=== PATIENT | male | born 1990 | race Caucasian/White ===

== ENCOUNTER 2021-06-26 17:05 | Emergency (ER) | payer OTHER ==
[~2021-06-26] VITALS: Ht 182.9 cm; Wt 63.5 kg
[~2021-06-26 17:05] MED LIST: STOMACH MED
[2021-06-26] MEDS ORDERED: GABA100 (17:29)
== END 2021-06-26 19:05 | disposition home or self-care (01) ==
LOC: ER 17:05
DX: S06.0X0A Concussion without loss of consciousness, initial encounter (principal); S01.21XA Laceration without foreign body of nose, initial encounter; W22.8XXA Striking against or struck by other objects, initial encounter
CPT/HCPCS: 12013; 70486; 96372; 99283-25; A9270; J1885

== ENCOUNTER 2021-08-18 12:55 | Emergency (ER) | payer OTHER ==
[~2021-08-18] VITALS: Ht 177.8 cm; Wt 79.4 kg
[~2021-08-18 12:55] MED LIST changes: +GABA100
== END 2021-08-18 15:20 | disposition home or self-care (01) ==
LOC: ER 12:55
DX: S93.401A Sprain of unspecified ligament of right ankle, initial encounter (principal); X58.XXXA Exposure to other specified factors, initial encounter
CPT/HCPCS: 73590; 73610; 73630; J1885; J2405; J3010

== ENCOUNTER 2021-09-03 10:21 | Emergency (ER) | payer OTHER ==
[~2021-09-03] VITALS: Ht 170.2 cm; Wt 70.3 kg
[2021-09-03 12:05] LABS: BASOPHILS ABSOLUTE AUTO 0.04 K/mm3 (0.00-0.23); BASOPHILS PERCENT AUTO 0 % (0-2); EOSINOPHILS ABSOLUTE AUTO 0.08 K/mm3 (0.00-0.68); EOSINOPHILS PERCENT AUTO 1 % (0-6); Hematocrit 43.6 % (37.0-53.0); Hemoglobin 14.7 g/dL (13.5-17.5); IMMATURE GRAN ABSOLUTE AUTO 0.08 K/mm3 (0.00-0.10); IMMATURE GRAN PERCENT AUTO 1 % (0-1); LYMPHOCYTES ABSOLUTE AUTO 1.05 K/mm3 (0.84-5.20); LYMPHOCYTES PERCENT AUTO 7 % (21-46); MONOCYTES ABSOLUTE AUTO 1.14 K/mm3 (0.16-1.47); MONOCYTES PERCENT AUTO 7 % (4-13); Mean Corpuscular HGB 31.1 pg (26.0-34.0); Mean Corpuscular HGB Conc 33.7 g/dL (31.5-36.5); Mean Corpuscular Volume 92 fL (80-100); Mean Platelet Volume 10.5 fL (9.1-12.4); NEUTROPHILS ABSOLUTE AUTO 13.85 K/mm3 (1.96-9.15); NEUTROPHILS PERCENT AUTO 85 % (41-73); Platelet Count 237 K/mm3 (150-400); RDW Coefficient Variation 13.3 % (11.7-14.2); RDW Standard Deviation 45.1 fL (35.1-46.3); Red Blood Cell Count 4.73 M/mm3 (4.30-5.90); White Blood Cell Count 16.24 K/mm3 (4.00-11.30)
[2021-09-03 12:36] LABS: Alanine Aminotransfer (ALT/SGP 24 U/L (12-78); Albumin, Blood 3.8 g/dL (3.4-5.0); Alk Phos 88 U/L (50-136); Anion Gap 10 mmol/L (6-16); Aspartate Aminotrans (AST/SGOT 12 U/L (12-37); Bilirubin, Total 0.6 mg/dL (0.1-1.0); Blood Urea Nitrogen 8 mg/dL (8-24); CO2, Blood 26 mmol/L (21-32); Calcium, Blood 9.8 mg/dL (8.5-10.1); Chloride, Blood 102 mmol/L (98-108); Globulin, Blood 3.9 g/dL (2.2-4.0); Glomerular Filtration Rate >60 (60-); Glucose, Blood 108 mg/dL (70-99); Potassium, Blood 4.1 mmol/L (3.5-5.5); Sodium, Blood 138 mmol/L (136-145); Total Protein, Blood 7.7 g/dL (6.4-8.2)
== END 2021-09-03 12:58 | disposition home or self-care (01) ==
LOC: ER 10:21
PROVIDERS: Physician Assistant
DX: B08.4 Enteroviral vesicular stomatitis with exanthem (principal); F17.220 Nicotine dependence, chewing tobacco, uncomplicated
CPT/HCPCS: 80053; 85025; 86592; A9270; J0561

== ENCOUNTER 2021-09-05 13:17 | Emergency (ER) | payer OTHER ==
[~2021-09-05] VITALS: Ht 180.3 cm; Wt 70.3 kg
[2021-09-05 13:33] LABS: BASOPHILS ABSOLUTE AUTO 0.05 K/mm3 (0.00-0.23); BASOPHILS PERCENT AUTO 0 % (0-2); EOSINOPHILS ABSOLUTE AUTO 0.16 K/mm3 (0.00-0.68); EOSINOPHILS PERCENT AUTO 1 % (0-6); Hematocrit 45.9 % (37.0-53.0); Hemoglobin 15.6 g/dL (13.5-17.5); IMMATURE GRAN ABSOLUTE AUTO 0.05 K/mm3 (0.00-0.10); IMMATURE GRAN PERCENT AUTO 0 % (0-1); LYMPHOCYTES ABSOLUTE AUTO 0.73 K/mm3 (0.84-5.20); LYMPHOCYTES PERCENT AUTO 6 % (21-46); MONOCYTES ABSOLUTE AUTO 1.46 K/mm3 (0.16-1.47); MONOCYTES PERCENT AUTO 11 % (4-13); Mean Corpuscular Volume 91 fL (80-100); Mean Platelet Volume 9.9 fL (9.1-12.4); NEUTROPHILS ABSOLUTE AUTO 10.67 K/mm3 (1.96-9.15); NEUTROPHILS PERCENT AUTO 81 % (41-73); Platelet Count 298 K/mm3 (150-400); RDW Coefficient Variation 13.2 % (11.7-14.2); RDW Standard Deviation 44.2 fL (35.1-46.3); Red Blood Cell Count 5.04 M/mm3 (4.30-5.90); White Blood Cell Count 13.12 K/mm3 (4.00-11.30)
[2021-09-05 13:51] LABS: Alanine Aminotransfer (ALT/SGP 26 U/L (12-78); Albumin, Blood 3.7 g/dL (3.4-5.0); Albumin/Globulin Ratio 0.8 (0.8-1.8); Alk Phos 84 U/L (50-136); Anion Gap 8 mmol/L (6-16); Aspartate Aminotrans (AST/SGOT 20 U/L (12-37); Bilirubin, Total 0.5 mg/dL (0.1-1.0); Blood Urea Nitrogen 15 mg/dL (8-24); Bun/Creatinine Ratio 17.6 (12.0-20.0); CO2, Blood 26 mmol/L (21-32); Calcium, Blood 9.4 mg/dL (8.5-10.1); Chloride, Blood 101 mmol/L (98-108); Creatinine, Blood 0.85 mg/dL (0.60-1.20); Globulin, Blood 4.8 g/dL (2.2-4.0); Glomerular Filtration Rate >60 (60-); Glucose, Blood 110 mg/dL (70-99); Potassium, Blood 4.1 mmol/L (3.5-5.5); Sodium, Blood 135 mmol/L (136-145); Total Protein, Blood 8.5 g/dL (6.4-8.2)
[2021-09-05] MEDS ORDERED: PREDNISOLO15 MG/5 ML PO (16:29)
[2021-09-05] MEDS ORDERED: Tylenol W/Code120 ML PO (16:29)
== END 2021-09-05 16:45 | disposition home or self-care (01) ==
LOC: ER 13:17
PROVIDERS: Emergency Medicine
DX: R21 Rash and other nonspecific skin eruption (principal); F17.220 Nicotine dependence, chewing tobacco, uncomplicated
CPT/HCPCS: 36415; 71045; 80053; 85025; 85651; 86140; A9270; J1100; J1885

== ENCOUNTER → 2021-09-10 | Outpatient (CLI) | payer OTHER ==
[~2021-09-10] MED LIST changes: +PREDNISOLO15 MG/5 ML PO; +Tylenol W/Code120 ML PO
[2021-09-10 13:54] LABS: BASOPHILS ABSOLUTE AUTO 0.03 K/mm3 (0.00-0.23); BASOPHILS PERCENT AUTO 0 % (0-2); EOSINOPHILS ABSOLUTE AUTO 0.02 K/mm3 (0.00-0.68); EOSINOPHILS PERCENT AUTO 0 % (0-6); Hematocrit 38.7 % (37.0-53.0); Hemoglobin 13.1 g/dL (13.5-17.5); IMMATURE GRAN ABSOLUTE AUTO 0.07 K/mm3 (0.00-0.10); IMMATURE GRAN PERCENT AUTO 1 % (0-1); LYMPHOCYTES ABSOLUTE AUTO 0.71 K/mm3 (0.84-5.20); LYMPHOCYTES PERCENT AUTO 6 % (21-46); MONOCYTES PERCENT AUTO 3 % (4-13); Mean Corpuscular HGB 31.4 pg (26.0-34.0); Mean Corpuscular HGB Conc 33.9 g/dL (31.5-36.5); Mean Corpuscular Volume 93 fL (80-100); Mean Platelet Volume 9.7 fL (9.1-12.4); NEUTROPHILS ABSOLUTE AUTO 10.07 K/mm3 (1.96-9.15); NEUTROPHILS PERCENT AUTO 90 % (41-73); Platelet Count 414 K/mm3 (150-400); RDW Coefficient Variation 13.1 % (11.7-14.2); RDW Standard Deviation 44.5 fL (35.1-46.3); Red Blood Cell Count 4.17 M/mm3 (4.30-5.90)
[2021-09-10 14:12] LABS: Alanine Aminotransfer (ALT/SGP 29 U/L (12-78); Albumin, Blood 3.4 g/dL (3.4-5.0); Alk Phos 73 U/L (40-126); Anion Gap 11 mmol/L (6-16); Aspartate Aminotrans (AST/SGOT 12 U/L (12-37); Bilirubin, Total 0.3 mg/dL (0.1-1.0); Blood Urea Nitrogen 11 mg/dL (8-24); Bun/Creatinine Ratio 16.2 (12.0-20.0); CO2, Blood 26 mmol/L (21-32); Calcium, Blood 9.2 mg/dL (8.5-10.1); Chloride, Blood 104 mmol/L (98-108); Creatinine, Blood 0.68 mg/dL (0.60-1.20); Globulin, Blood 3.4 g/dL (2.2-4.0); Glomerular Filtration Rate >60 (60-); Glucose, Blood 96 mg/dL (70-99); Potassium, Blood 4.2 mmol/L (3.5-5.5); Sodium, Blood 141 mmol/L (136-145); Total Protein, Blood 6.8 g/dL (6.4-8.2)
[2021-09-11 07:09] LABS: HBSAG SCREEN Negative (Negative); HEP A AB, IGM Negative (Negative); HEP B CORE AB, IGM Negative (Negative); HEP C VIRUS AB <0.1 (0.0-0.9); HIV AB/P24 AG SCREEN Non Reactive (Non Reactive)
[2021-09-11 21:08] LABS: CHLAMYDIA TRACHOMATIS, NAA Negative (Negative)
== END | disposition home or self-care (01) ==
LOC: LAB SHORT 13:26
PROVIDERS: Physician Assistant Surgical
DX: A41.9 Sepsis, unspecified organism (principal); H10.9 Unspecified conjunctivitis
CPT/HCPCS: 80053; 80074; 83605; 85025; 86592; 87070; 87077; 87186; 87205; 87389; 87491; 87591

== ENCOUNTER → 2021-12-14 | Outpatient (CLI) | payer OTHER ==
[~2021-12-14] MED LIST changes: +HYDACE5 PO; +Zofran8 MG PO
== END ==
LOC: LAB SHORT 07:46 → LAB 07:46
DX: R10.84 Generalized abdominal pain (principal); R19.7 Diarrhea, unspecified; R11.2 Nausea with vomiting, unspecified; R63.4 Abnormal weight loss
CPT/HCPCS: 83993

== ENCOUNTER → 2021-12-31 | Outpatient (CLI) | payer OTHER | END | disposition home or self-care (01) | LOC: LAB SHORT 13:25 → LAB 13:25 | DX: Z20.822 Contact with and (suspected) exposure to COVID-19 (principal) | CPT/HCPCS: U0003 ==

== ENCOUNTER 2022-01-28 04:31 | Inpatient (IN) | payer OTHER ==
[~2022-01-28] VITALS: Ht 180.3 cm; Wt 68.0 kg
[2022-01-28 05:39] LABS: BASOPHILS ABSOLUTE AUTO 0.05 K/mm3 (0.00-0.23); BASOPHILS PERCENT AUTO 0 % (0-2); EOSINOPHILS ABSOLUTE AUTO 0.03 K/mm3 (0.00-0.68); EOSINOPHILS PERCENT AUTO 0 % (0-6); Hematocrit 43.6 % (37.0-53.0); Hemoglobin 14.8 g/dL (13.5-17.5); IMMATURE GRAN ABSOLUTE AUTO 0.14 K/mm3 (0.00-0.10); IMMATURE GRAN PERCENT AUTO 1 % (0-1); LYMPHOCYTES ABSOLUTE AUTO 1.98 K/mm3 (0.84-5.20); LYMPHOCYTES PERCENT AUTO 14 % (21-46); MONOCYTES ABSOLUTE AUTO 0.79 K/mm3 (0.16-1.47); MONOCYTES PERCENT AUTO 6 % (4-13); Mean Corpuscular HGB 31.8 pg (26.0-34.0); Mean Corpuscular HGB Conc 33.9 g/dL (31.5-36.5); Mean Corpuscular Volume 94 fL (80-100); Mean Platelet Volume 9.9 fL (9.1-12.4); NEUTROPHILS ABSOLUTE AUTO 10.95 K/mm3 (1.96-9.15); NEUTROPHILS PERCENT AUTO 79 % (41-73); Platelet Count 324 K/mm3 (150-400); RDW Coefficient Variation 12.7 % (11.7-14.2); RDW Standard Deviation 43.7 fL (35.1-46.3); Red Blood Cell Count 4.65 M/mm3 (4.30-5.90); White Blood Cell Count 13.94 K/mm3 (4.00-11.30)
[2022-01-28 06:08] LABS: Albumin, Blood 4.2 g/dL (3.4-5.0); Bilirubin, Total 0.4 mg/dL (0.1-1.0); Bun/Creatinine Ratio 16.8 (12.0-20.0); Calcium, Blood 9.8 mg/dL (8.5-10.1); Creatinine, Blood 0.72 mg/dL (0.60-1.20); Potassium, Blood 3.9 mmol/L (3.5-5.5); Total Protein, Blood 8.2 g/dL (6.4-8.2)
[2022-01-28 09:26] LABS: Source, Urine Clean Catch
[2022-01-28 09:38] LABS: Bilirubin, Urine Neg (Neg); Blood, Urine Neg (Neg); Glucose Qualitative, Urine Neg (Neg); Ketones, Urine 4+ (Neg); Leukocyte Esterase, Urine Neg (Neg); Nitrite, Urine Neg (Neg); Protein, Urine 2+ (Neg); Specific Gravity, Urine 1.015 (1.003-1.022); Urobilinogen, Urine NORM (Normal); pH, Urine 6.5 (5.0-8.0)
[2022-01-28 09:49] LABS: Appearance, Urine Clear (Clear); Color, Urine Yellow (P-Yellow)
[2022-01-28 09:50] LABS: Bacteria Rare /hpf; Mucus Light (0-Heavy); Red Blood Cells, Urine 0-2 /hpf (0-2); Squamous Epithelial Cells Rare /hpf (Few); White Blood Cells, Urine 0-2 /hpf (0-5)
--- NOTE | 2022-01-28 14:22 | NUR ---
ADMISSION: REPORT RECEIVED FROM ED RN. PT TO ROOM AT ABOUT 1410. PT IS A/O, VSS. PT REPORTS PAIN 5/10, DENIES NEED FOR MEDICATION. DENIES N/V AT THIS TIME. SPOKE WITH DR. MOODY AT THIS TIME. PER DR. MOODY PT DOES NOT REQUIRE DROPLET PRECAUTIONS AT THIS TIME OR COVID TEST. PT GIVEN CALL LIGHT, WILL CTM.
[2022-01-28 14:35] LABS: BASOPHILS ABSOLUTE AUTO 0.01 K/mm3 (0.00-0.23); BASOPHILS PERCENT AUTO 0 % (0-2); EOSINOPHILS PERCENT AUTO 0 % (0-6); Hematocrit 39.5 % (37.0-53.0); Hemoglobin 13.4 g/dL (13.5-17.5); IMMATURE GRAN ABSOLUTE AUTO 0.09 K/mm3 (0.00-0.10); IMMATURE GRAN PERCENT AUTO 1 % (0-1); LYMPHOCYTES ABSOLUTE AUTO 0.57 K/mm3 (0.84-5.20); LYMPHOCYTES PERCENT AUTO 4 % (21-46); MONOCYTES ABSOLUTE AUTO 0.28 K/mm3 (0.16-1.47); MONOCYTES PERCENT AUTO 2 % (4-13); Mean Corpuscular HGB 31.8 pg (26.0-34.0); Mean Corpuscular HGB Conc 33.9 g/dL (31.5-36.5); Mean Corpuscular Volume 94 fL (80-100); Mean Platelet Volume 9.8 fL (9.1-12.4); NEUTROPHILS ABSOLUTE AUTO 13.42 K/mm3 (1.96-9.15); NEUTROPHILS PERCENT AUTO 93 % (41-73); Platelet Count 267 K/mm3 (150-400); RDW Coefficient Variation 12.6 % (11.7-14.2); RDW Standard Deviation 43.8 fL (35.1-46.3); Red Blood Cell Count 4.21 M/mm3 (4.30-5.90); White Blood Cell Count 14.37 K/mm3 (4.00-11.30)
--- NOTE | 2022-01-28 16:14 | NUR ---
SUMMARY: NO ACUTE CHANGE SINCE ADMIT. PT CONTINUES TO HAVE INTERMITTANT NAUSEA WHEN TAKING IN PO FLUIDS. EMESIS OF 25 ML THIS SHIFT. PT ALSO MEDICATED FOR SHARP/SHOOTING ABD PAIN WITH 1 MG DILAUDID. PT APPEARS MORE COMFORTABLE AND ABLE TO REST AFTER RECEIVING PAIN MEDICATION, AWAKENS EASILY TO VOICE. CONTINUIOUS BIOX ORDERED FOR HIGH RISK PAIN MANAGEMENT, RT NOTIFIED OF ORDER. WILL CTM, REPORT PASSED TO MICHELLE ALANIS.
--- NOTE | 2022-01-28 18:26 | NUR ---
SUMMARY PT ALTERNATES BETWEEN SLEEPING SOUNDLY AND WRITHING AND CRYING IN BED WITH REPORTS OF SEVERE ABD PAIN. 1 EPISODE OF SMALL AMOUNT OF YELLOW TINGED LIQUID EMESIS.
[2022-01-29 05:07] LABS: BASOPHILS ABSOLUTE AUTO 0.02 K/mm3 (0.00-0.23); BASOPHILS PERCENT AUTO 0 % (0-2); EOSINOPHILS PERCENT AUTO 0 % (0-6); Hemoglobin 14.1 g/dL (13.5-17.5); IMMATURE GRAN ABSOLUTE AUTO 0.07 K/mm3 (0.00-0.10); IMMATURE GRAN PERCENT AUTO 0 % (0-1); LYMPHOCYTES ABSOLUTE AUTO 1.45 K/mm3 (0.84-5.20); LYMPHOCYTES PERCENT AUTO 9 % (21-46); MONOCYTES ABSOLUTE AUTO 0.87 K/mm3 (0.16-1.47); MONOCYTES PERCENT AUTO 6 % (4-13); Mean Corpuscular HGB 32.1 pg (26.0-34.0); Mean Corpuscular HGB Conc 34.4 g/dL (31.5-36.5); Mean Corpuscular Volume 93 fL (80-100); Mean Platelet Volume 10.3 fL (9.1-12.4); NEUTROPHILS ABSOLUTE AUTO 13.22 K/mm3 (1.96-9.15); NEUTROPHILS PERCENT AUTO 85 % (41-73); Platelet Count 292 K/mm3 (150-400); RDW Coefficient Variation 12.6 % (11.7-14.2); RDW Standard Deviation 43.5 fL (35.1-46.3); Red Blood Cell Count 4.39 M/mm3 (4.30-5.90); White Blood Cell Count 15.63 K/mm3 (4.00-11.30)
--- NOTE | 2022-01-29 05:24 | NUR ---
SHIFT SUMMARY PT COOPERATIVE W/ CARE AND RECOMMENDED INTERVENTIONS. A&OX4, INDENDENT IN ROOM, PT REPORTED SEVERE NAUSEA AND VOMITING THROUGHOUT SHIFT, DRY HEAVING WINESSED, SYMPTOMS REPORTED BEING TEMPORARILY CONTROLLED W/ MEDICATION VIA EMAR AND INTERVENTIONS. PT REPORTS TAKING A HOT SHOWER WORKING TO CONTROL SYMPTOMS OF NAUSEA, K-PAD PROVIDED, IV IN R. FOREARM INFUSING 1/2 NS. PT REPORTS RECENTLY SEEING GI PROVIDER IN [place] WITH UNREMARKABLE ENDO/COLONOSCOPY. CLEAR LIQUID DIET ORDERED. TOLERATING PO INTAKE.
[2022-01-29 05:39] LABS: Albumin, Blood 3.8 g/dL (3.4-5.0); Albumin/Globulin Ratio 1.2 (0.8-1.8); Bilirubin, Total 0.6 mg/dL (0.1-1.0); Bun/Creatinine Ratio 15.2 (12.0-20.0); Calcium, Blood 9.5 mg/dL (8.5-10.1); Creatinine, Blood 0.72 mg/dL (0.60-1.20); Globulin, Blood 3.2 g/dL (2.2-4.0); Potassium, Blood 3.7 mmol/L (3.5-5.5)
--- NOTE | 2022-01-29 18:33 | NUR ---
SHIFT SUMMARY PT A/O X4 THROUGHOUT SHIFT. PAIN MANAGED W/ IV PAIN MEDICATION AT BEGINING OF THE SHIFT AND MOVED ONTO PO PAIN MEDICATION. PT WAS ALSO STARTED ON KLONAPIN TODAY PER DR. FIELDS FOR ANXIETY/DEPRESSION, PT CRYING OUT SEVERAL TIMES THROUHGOUT THE SHIFT. PT HAVING BOUTS OF EMESIS THIS SHIFT, MANAGED W/ ZOFRAN. ABDOMEN TENDER TO TOUCH. VOIDING WELL. WILL CONTINUE TO MONITOR AND REPORT TO ONCOMING RN.
--- NOTE | 2022-01-30 03:31 | NUR ---
PT CONTINUES TO COMPLAIN OF SEVERE ABDOMINAL PAIN, NAUSEA AND VOMITING. HE STATES HE FEELS THAT HE NEEDS TO HAVE A BOWEL MOVEMENT BUT IS UNABLE TO. HE DENIES UNDERGOING A BREATH TEST FOR SMALL INTESTINE BACTERIAL OVERGROWTH OR MRI. SEVERAL GLOBS OF MUCUS NOTED IN THE EMESIS. PT DENIES ANY NASAL CONGESTION OR COLD-LIKE SYMPTOMS. HE STATED THAT HE IS SCARED THAT "I'M NOT GONNA MAKE IT". CALM REASSURANCE PROVIDED.
[2022-01-30 05:21] LABS: Hematocrit 42.6 % (37.0-53.0); Hemoglobin 14.1 g/dL (13.5-17.5); Mean Corpuscular HGB 31.5 pg (26.0-34.0); Mean Corpuscular HGB Conc 33.1 g/dL (31.5-36.5); Mean Corpuscular Volume 95 fL (80-100); Platelet Count 284 K/mm3 (150-400); RDW Coefficient Variation 12.5 % (11.7-14.2); RDW Standard Deviation 44.4 fL (35.1-46.3); Red Blood Cell Count 4.48 M/mm3 (4.30-5.90); White Blood Cell Count 14.59 K/mm3 (4.00-11.30)
--- NOTE | 2022-01-30 05:33 | NUR ---
PT CONTINUES TO COMPLAIN OF SEVERE ABDOMINAL PAIN AND NAUSEA W/DRY HEAVES. HE DID HAVE TWO BOUTS OF EMESIS OF APPROX 75 ML EACH. PT DENIES ANY PREVIOUS WORK-UP FOR AUTOIMMUNE DISORDERS. ON-CALL PHYSICIAN CALLED, NEW ORDER FOR GI COCKTAIL OBTAINED.
--- NOTE | 2022-01-30 05:58 | NUR ---
SHIFT SUMMARY PT A&OX4, INDEPENDENT IN ROOM, FULL LIQUID DIET, NORMAL VOIDING PATTERN NOTED. PT REPORTED SLEEPING FOR SEVERAL HOURS AFTER ADMIN OF KLONOPIN AND REMERON, BUT THEN REPORTED EXTREME LRQ ABDOMINAL/GROIN PAIN AND NAUSEA THAT WAS NOT ADEQUATLY CONTROLLED WITH MEDICATIONS VIA EMAR OR INTERVENTIONS. 20G IV INSERTED IN LEFT FOREARM, SALINE LOCKED. SMALL AMOUNT OF EMESIS NOTED GI COCKTAIL ORDERED AND ADMINISTERED, SPIRITUAL CARE CONSULT ORDERED.
[2022-01-30 06:01] LABS: Albumin, Blood 4.1 g/dL (3.4-5.0); Albumin/Globulin Ratio 1.2 (0.8-1.8); Bilirubin, Total 0.4 mg/dL (0.1-1.0); Bun/Creatinine Ratio 16.1 (12.0-20.0); Calcium, Blood 9.3 mg/dL (8.5-10.1); Creatinine, Blood 0.87 mg/dL (0.60-1.20); Globulin, Blood 3.4 g/dL (2.2-4.0); Phosphorus, Blood 2.8 mg/dL (2.5-4.9); Potassium, Blood 3.4 mmol/L (3.5-5.5); Total Protein, Blood 7.5 g/dL (6.4-8.2)
--- NOTE | 2022-01-30 08:29 | NUR ---
PAIN & N/V UNABLE TO DO ASSESSMENT. UPON ARRIVAL TO ROOM, PT IS CRYING OUT IN PAIN. WRITHING IN BED, ROLLING SIDE TO SIDE & FLIPPING FROM HEAD AT TOP OF BED TO HEAD AT BOTTOM OF BED. REPEATEDLY SAYING "CAN SOMEONE HELP ME?", "WHY WON'T SOMEBODY HELP ME?", "I HURT SO BAD." ASKED FOR HIS IV TO BE WRAPPED. IV WAS WRAPPED & HE GOT HIMSELF INTO THE SHOWER FOR APPROX 3 MINS. DURING THIS TIME, HE WAS GRABBING AT HIS STOMACH & PUKED GREEN BILE THAT I COULD VISUALIZE MIXED INTO THE SHOWER WATER. THEN GOT OUT DRIED OFF & PUT SWEATPANTS BACK ON. HE THEN LAYED OUT IN BED & KEPT STAYING "I JUST WANT TO SLEEP." COULD NOT SIT STILL IN BED THEN REPEATED THE CYCLE OF SHOWERING AGAIN.
--- NOTE | 2022-01-30 19:39 | NUR ---
SHIFT SUMMARY SINCE RECEIVING 1 DOSE OF DILAUDID MID AFTERNOON, PT HAS RESTED WELL & REPORT HIS MUSCLES AREN'T TENSE & PAIN IS MUCH BETTER. PRE MEDICATED w/ PHENERGAN PRIOR TO DINNER & WAS ABLE TO EAT THE SOUP WITHOUT INSTANT N/V.
--- NOTE | 2022-01-31 05:03 | NUR ---
PT IS A&OX4, INDEPENDENT IN ROOM AND IS ABLE TO MAKE NEEDS KNOWN. PT REPORTS PAIN WELL CONTROLLED THIS SHIFT WITH PRN DILAUDID AND NORCO, IV PHENEGRAN AND ZOFRAN FOR NAUSEA. COMPLAINTS OF NOT BEING ABLE TO HAVE BM, AMBULATION ENCOURAGED BUT PT DECLINED. RESTS BETWEEN CARES, IS ABLE TO SLEEP 6+ HOURS THIS SHIFT. WILL CONTINUE TO MONITOR PT AND GIVE HANDOFF REPORT TO ONCOMING NURSE.
[2022-01-31 05:05] LABS: BASOPHILS ABSOLUTE AUTO 0.03 K/mm3 (0.00-0.23); BASOPHILS PERCENT AUTO 0 % (0-2); EOSINOPHILS ABSOLUTE AUTO 0.03 K/mm3 (0.00-0.68); EOSINOPHILS PERCENT AUTO 0 % (0-6); Hematocrit 41.2 % (37.0-53.0); Hemoglobin 13.6 g/dL (13.5-17.5); IMMATURE GRAN ABSOLUTE AUTO 0.04 K/mm3 (0.00-0.10); IMMATURE GRAN PERCENT AUTO 0 % (0-1); LYMPHOCYTES ABSOLUTE AUTO 3.48 K/mm3 (0.84-5.20); LYMPHOCYTES PERCENT AUTO 38 % (21-46); MONOCYTES ABSOLUTE AUTO 0.63 K/mm3 (0.16-1.47); MONOCYTES PERCENT AUTO 7 % (4-13); Mean Corpuscular HGB 32.1 pg (26.0-34.0); Mean Corpuscular Volume 97 fL (80-100); NEUTROPHILS ABSOLUTE AUTO 4.99 K/mm3 (1.96-9.15); NEUTROPHILS PERCENT AUTO 54 % (41-73); Platelet Count 239 K/mm3 (150-400); RDW Coefficient Variation 12.7 % (11.7-14.2); RDW Standard Deviation 45.5 fL (35.1-46.3); Red Blood Cell Count 4.24 M/mm3 (4.30-5.90)
[2022-01-31 05:48] LABS: Albumin, Blood 3.4 g/dL (3.4-5.0); Albumin/Globulin Ratio 1.1 (0.8-1.8); Bilirubin, Total 0.7 mg/dL (0.1-1.0); Calcium, Blood 9.1 mg/dL (8.5-10.1); Creatinine, Blood 0.92 mg/dL (0.60-1.20); Potassium, Blood 4.9 mmol/L (3.5-5.5); Total Protein, Blood 6.4 g/dL (6.4-8.2)
--- NOTE | 2022-01-31 09:03 | NUR ---
EMESIS POST BREAKFAST
--- NOTE | 2022-01-31 11:47 | NUR ---
Upon receiving a spiritual care referral, I visit pt. Patient is sitting on EOB and rocking back and forth and crying. Pt states that his abdomen is in horrible pain. He also explains about the family unit complications stating, "My family doesn't care that I am in pain or about what happens to me." This causes pt to cry with more intensity. We then talk about his need for connection and for prayer. I provide companionship and prayer. Pt responds well and shows signs of increased peace and an elevated mood. I will continue to remain available to patient and family.
--- NOTE | 2022-01-31 19:46 | NUR ---
SHIFT SUMMARY PT HAS CONTINUED TO HAVE INT N/V BUT REPORTS HE FEELS IT HAS IMPROVED SLIGHTLY. HE DID ONOLY TAKE SMALL BITES OF MEALS TODAY. WALKED HALLWAY TODAY x 1. HAD BM. AFTER BM REPORTED SIGNIFICANTLY HIGHER PAIN IN R GROIN AREA. EMOTIONAL @ X's.
--- NOTE | 2022-01-31 21:44 | NUR ---
2100: PT LEAVES AMA, SIGNED FORM. NOTIFIED CHARGE NURSE VALERIANO EDWARDS. VALERIANO RN NOTIFIED NURSING MACHINE STRIPER AND DR. RUSSELL. PT STS HE WANTED TO LEAVE AND HEAD TO [facility] TO FIND A SECOND OPINION. I DISCUSSED THE RISK OF LEAVING WHICH IS WORSENIGN INFECTION THAT MAY LEAD TO SEPSIS AND . PT WAS ALSO NOTIFIED HIS BENEFITS OF STAYING FOR HIS TREATMENT FOR SYMPTOM MANAGEMENT AND ANTIBIOTIC. IV ON R AC DISCHARGE, CATH INTACT. PT TOOK HIS BELONGINGS WITH HIM.
== END 2022-01-31 21:00 | disposition left against medical advice (07) | DRG 728 ==
LOC: ER 04:31 → SURS 04:32
PROVIDERS: Family Medicine; Student in an Organized Health Care Education/Training Program; ADMIT Family Medicine
DX: N45.1 Epididymitis (principal); K52.9 Noninfective gastroenteritis and colitis, unspecified; K12.0 Recurrent oral aphthae; D72.829 Elevated white blood cell count, unspecified; R00.0 Tachycardia, unspecified; I10 Essential (primary) hypertension; Z90.49 Acquired absence of other specified parts of digestive tract; Z98.890 Other specified postprocedural states; F41.9 Anxiety disorder, unspecified; F32.A Depression, unspecified
CPT/HCPCS: 36415; 74018; 74177; 76857; 76870; 80053; 81001; 83605; 83690; 84100; 85025; 85027; 93005; 93010; 94762; 96374-59; 96375; 96376; 99285-25; A9270; G0378; J1170; J1630; J1790; J1885; J1956; J1980; J2405; J2550; J7030; Q9967

== ENCOUNTER 2022-07-27 11:15 | Emergency (ER) | payer OTHER ==
[~2022-07-27] VITALS: Ht 177.8 cm; Wt 70.3 kg
[2022-07-27 11:57] LABS: BASOPHILS ABSOLUTE AUTO 0.07 K/mm3 (0.00-0.23); BASOPHILS PERCENT AUTO 1 % (0-2); EOSINOPHILS ABSOLUTE AUTO 0.03 K/mm3 (0.00-0.68); EOSINOPHILS PERCENT AUTO 0 % (0-6); Hematocrit 41.3 % (37.0-53.0); IMMATURE GRAN ABSOLUTE AUTO 0.11 K/mm3 (0.00-0.10); IMMATURE GRAN PERCENT AUTO 1 % (0-1); LYMPHOCYTES ABSOLUTE AUTO 1.81 K/mm3 (0.84-5.20); LYMPHOCYTES PERCENT AUTO 16 % (21-46); MONOCYTES PERCENT AUTO 5 % (4-13); Mean Corpuscular HGB 32.6 pg (26.0-34.0); Mean Corpuscular HGB Conc 33.9 g/dL (31.5-36.5); Mean Corpuscular Volume 96 fL (80-100); Mean Platelet Volume 10.2 fL (9.1-12.4); NEUTROPHILS ABSOLUTE AUTO 9.05 K/mm3 (1.96-9.15); NEUTROPHILS PERCENT AUTO 78 % (41-73); Platelet Count 320 K/mm3 (150-400); RDW Coefficient Variation 13.2 % (11.7-14.2); RDW Standard Deviation 46.7 fL (35.1-46.3); White Blood Cell Count 11.67 K/mm3 (4.00-11.30)
[2022-07-27 12:18] LABS: Albumin/Globulin Ratio 1.1 (0.8-1.8); Bilirubin, Total 0.8 mg/dL (0.1-1.0); Bun/Creatinine Ratio 14.3 (12.0-20.0); Calcium, Blood 10.1 mg/dL (8.5-10.1); Creatinine, Blood 0.77 mg/dL (0.60-1.20); Globulin, Blood 3.8 g/dL (2.2-4.0); Potassium, Blood 4.3 mmol/L (3.5-5.5); Total Protein, Blood 7.8 g/dL (6.4-8.2)
== END 2022-07-27 17:25 | disposition left against medical advice (07) ==
LOC: ER 11:15
PROVIDERS: Physician Assistant
DX: R11.2 Nausea with vomiting, unspecified (principal); R19.7 Diarrhea, unspecified; Z53.21 Procedure and treatment not carried out due to patient leaving prior to being seen by health care provider
CPT/HCPCS: 80053; 83690; 85025

== ENCOUNTER → 2022-07-28 | Outpatient (CLI) | payer OTHER ==
[2022-07-28 09:06] LABS: BASOPHILS ABSOLUTE AUTO 0.01 K/mm3 (0.00-0.23); BASOPHILS PERCENT AUTO 0 % (0-2); EOSINOPHILS PERCENT AUTO 0 % (0-6); Hematocrit 40.1 % (37.0-53.0); IMMATURE GRAN ABSOLUTE AUTO 0.06 K/mm3 (0.00-0.10); IMMATURE GRAN PERCENT AUTO 1 % (0-1); LYMPHOCYTES ABSOLUTE AUTO 1.21 K/mm3 (0.84-5.20); LYMPHOCYTES PERCENT AUTO 9 % (21-46); MONOCYTES ABSOLUTE AUTO 0.82 K/mm3 (0.16-1.47); MONOCYTES PERCENT AUTO 6 % (4-13); Mean Corpuscular HGB 33.1 pg (26.0-34.0); Mean Corpuscular HGB Conc 34.9 g/dL (31.5-36.5); Mean Corpuscular Volume 95 fL (80-100); Mean Platelet Volume 9.8 fL (9.1-12.4); NEUTROPHILS ABSOLUTE AUTO 10.89 K/mm3 (1.96-9.15); NEUTROPHILS PERCENT AUTO 84 % (41-73); Platelet Count 295 K/mm3 (150-400); RDW Coefficient Variation 13.2 % (11.7-14.2); RDW Standard Deviation 46.1 fL (35.1-46.3); Red Blood Cell Count 4.23 M/mm3 (4.30-5.90); White Blood Cell Count 12.99 K/mm3 (4.00-11.30)
[2022-07-28 09:15] LABS: Albumin, Blood 4.2 g/dL (3.4-5.0); Albumin/Globulin Ratio 1.1 (0.8-1.8); Bilirubin, Total 0.5 mg/dL (0.1-1.0); Bun/Creatinine Ratio 13.8 (12.0-20.0); Calcium, Blood 9.6 mg/dL (8.5-10.1); Creatinine, Blood 0.94 mg/dL (0.60-1.20); Globulin, Blood 3.8 g/dL (2.2-4.0)
== END | disposition home or self-care (01) ==
LOC: LAB SHORT 08:57
PROVIDERS: Physician Assistant
DX: R10.9 Unspecified abdominal pain (principal)
CPT/HCPCS: 80053; 85025

== ENCOUNTER → 2022-10-08 | Outpatient (CLI) | payer OTHER ==
[2022-10-08 14:09] LABS: BASOPHILS ABSOLUTE AUTO 0.03 K/mm3 (0.00-0.23); BASOPHILS PERCENT AUTO 0 % (0-2); EOSINOPHILS ABSOLUTE AUTO 0.03 K/mm3 (0.00-0.68); EOSINOPHILS PERCENT AUTO 0 % (0-6); Hematocrit 44.9 % (37.0-53.0); Hemoglobin 15.6 g/dL (13.5-17.5); IMMATURE GRAN ABSOLUTE AUTO 0.05 K/mm3 (0.00-0.10); IMMATURE GRAN PERCENT AUTO 0 % (0-1); LYMPHOCYTES ABSOLUTE AUTO 2.15 K/mm3 (0.84-5.20); LYMPHOCYTES PERCENT AUTO 16 % (21-46); MONOCYTES ABSOLUTE AUTO 0.88 K/mm3 (0.16-1.47); MONOCYTES PERCENT AUTO 7 % (4-13); Mean Corpuscular HGB 32.6 pg (26.0-34.0); Mean Corpuscular HGB Conc 34.7 g/dL (31.5-36.5); Mean Corpuscular Volume 94 fL (80-100); Mean Platelet Volume 9.7 fL (9.1-12.4); NEUTROPHILS ABSOLUTE AUTO 10.27 K/mm3 (1.96-9.15); NEUTROPHILS PERCENT AUTO 77 % (41-73); Platelet Count 313 K/mm3 (150-400); RDW Coefficient Variation 12.8 % (11.7-14.2); RDW Standard Deviation 44.2 fL (35.1-46.3); Red Blood Cell Count 4.79 M/mm3 (4.30-5.90); White Blood Cell Count 13.41 K/mm3 (4.00-11.30)
[2022-10-08 14:14] LABS: Albumin, Blood 4.1 g/dL (3.4-5.0); Albumin/Globulin Ratio 1.1 (0.8-1.8); Bilirubin, Total 0.6 mg/dL (0.1-1.0); Calcium, Blood 9.4 mg/dL (8.5-10.1); Creatinine, Blood 0.83 mg/dL (0.60-1.20); Globulin, Blood 3.7 g/dL (2.2-4.0); Total Protein, Blood 7.8 g/dL (6.4-8.2)
[2022-10-08 14:43] LABS: C-REACTIVE PROTEIN, EXT RANGE 0.4 mg/dL (0.000-0.300)
== END | disposition home or self-care (01) ==
LOC: LAB 14:01 → LAB SHORT 14:01
PROVIDERS: Family Medicine
DX: R63.4 Abnormal weight loss (principal); R50.9 Fever, unspecified
CPT/HCPCS: 80053; 83690; 85025; 86140

== ENCOUNTER → 2022-11-14 | Outpatient (CLI) | payer OTHER | END | disposition home or self-care (01) | LOC: PLD 14:02 → LAB SHORT 14:02 | DX: L72.0 Epidermal cyst (principal) | CPT/HCPCS: 88304 ==

== ENCOUNTER 2023-04-29 15:53 | Emergency (ER) | payer OTHER ==
[~2023-04-29] VITALS: Ht 175.3 cm; Wt 68.0 kg
[2023-04-29 16:17] VITALS: BP 122/97
[2023-04-29] MEDS ORDERED: Norco 5-325 Ta1 EACH PO (20:57)
[2023-04-29] MEDS ORDERED: CEPH500 PO ×2 (20:57→21:38)
== END 2023-04-29 21:42 | disposition home or self-care (01) ==
LOC: ER 15:53
DX: S68.125A Partial traumatic metacarpophalangeal amputation of left ring finger, initial encounter (principal); S68.127A Partial traumatic metacarpophalangeal amputation of left little finger, initial encounter; S68.123A Partial traumatic metacarpophalangeal amputation of left middle finger, initial encounter; V29.888A Rider (driver) (passenger) of other motorcycle injured in other specified transport accidents, initial encounter; F17.220 Nicotine dependence, chewing tobacco, uncomplicated
CPT/HCPCS: 64450; 73120; 99283-25; A9270

== ENCOUNTER 2025-07-16 12:20 | Emergency (ER) | payer OTHER ==
[~2025-07-16] VITALS: Ht 177.8 cm; Wt 70.3 kg
[~2025-07-16 12:20] MED LIST changes: +CEPH500 PO; +Norco 5-325 Ta1 EACH PO
[2025-07-16 12:55] VITALS: BP 134/82
[2025-07-16] MEDS ORDERED: Ketorolac Tromethamine 15mg Vial IV ONE (13:00)
[2025-07-16] MEDS ORDERED: Ondansetron HCl 2 MG / ML 2ML Vial IV ONE (13:00)
[2025-07-16 13:28] LABS: BASOPHILS ABSOLUTE AUTO 0.04 K/mm3 (0.00-0.23); BASOPHILS PERCENT AUTO 0 % (0-2); EOSINOPHILS ABSOLUTE AUTO 0.10 K/mm3 (0.00-0.68); EOSINOPHILS PERCENT AUTO 1 % (0-6); Hematocrit 45.0 % (37.0-53.0); Hemoglobin 15.4 g/dL (13.5-17.5); IMMATURE GRAN ABSOLUTE AUTO 0.04 K/mm3 (0.00-0.10); IMMATURE GRAN PERCENT AUTO 0 % (0-1); LYMPHOCYTES ABSOLUTE AUTO 2.11 K/mm3 (0.84-5.20); LYMPHOCYTES PERCENT AUTO 21 % (21-46); MONOCYTES ABSOLUTE AUTO 0.66 K/mm3 (0.16-1.47); MONOCYTES PERCENT AUTO 7 % (4-13); Mean Corpuscular HGB Conc 34.2 g/dL (31.5-36.5); Mean Corpuscular Volume 98 fL (80-100); NEUTROPHILS ABSOLUTE AUTO 6.99 K/mm3 (1.96-9.15); NEUTROPHILS PERCENT AUTO 70 % (41-73); NRBC ABSOLUTE 0.00 K/mm3 (0.00-0.02); NRBC Auto 0.0 /100 WBC (0.0-0.2); Platelet Count 313 K/mm3 (150-400); RDW Coefficient Variation 13.2 % (11.7-14.2); RDW Standard Deviation 47.8 fL (35.1-46.3)
[2025-07-16 14:00] LABS: Alanine Aminotransfer (ALT/SGP 42.0 U/L (12-78); Albumin, Blood 3.9 g/dL (3.4-5.0); Albumin/Globulin Ratio 1.1 (0.8-1.8); Anion Gap 8.0 mmol/L (3-11); Aspartate Aminotrans (AST/SGOT 28.0 U/L (12-37); Bilirubin, Total 0.5 mg/dL (0.1-1.0); Blood Urea Nitrogen 7.0 mg/dL (8-24); CO2, Blood 25.0 mmol/L (21-32); Calcium, Blood 9.5 mg/dL (8.5-10.1); Chloride, Blood 108.0 mmol/L (98-108); Creatinine, Blood 0.77 mg/dL (0.60-1.20); Globulin, Blood 3.6 g/dL (2.2-4.0); Glucose, Blood 128.0 mg/dL (70-99); Potassium, Blood 4.0 mmol/L (3.5-5.5); Sodium, Blood 137.0 mmol/L (136-145); Total Protein, Blood 7.5 g/dL (6.4-8.2)
== END 2025-07-16 14:58 | disposition home or self-care (01) ==
LOC: ER 12:20
PROVIDERS: Physician Assistant
DX: R10.9 Unspecified abdominal pain (principal); R11.2 Nausea with vomiting, unspecified; R19.7 Diarrhea, unspecified; F17.220 Nicotine dependence, chewing tobacco, uncomplicated; Z79.899 Other long term (current) drug therapy
CPT/HCPCS: 80053; 85025; 96374; 96375; 99284-25; A9270; J1885; J2405